=== PATIENT | female | born 1945 | race Caucasian/White ===

== ENCOUNTER 2020-06-25 11:48 | Day surgery (SDC) | payer MEDICARE, OTHER ==
[~2020-06-25] VITALS: Ht 162.6 cm; Wt 68.0 kg
--- NOTE | ~2020-06-25 | OR ---
[facility] [address] [place], [place] [address] Draft DATE OF OPERATION: 06/25/2020 SURGEON: Anshul Velarde MD PREOPERATIVE DIAGNOSIS: Recent profound rectal bleeding (with cessation). POSTOPERATIVE DIAGNOSES: 1. Large internal hemorrhoids. 2. Scattered diverticula. 3. Small polyp of the cecum. PROCEDURE: Total colonoscopy to cecum with cold morcellation polypectomy x1. ANESTHESIA: Intravenous sedation; fentanyl 100 mcg and Versed 3 mg. INDICATION: This 74-year-old white woman is a patient Dr. Pineda and had rather progressive profound rectal bleeding that spontaneously stopped on May 16, 2020. Plans were made for colonoscopy. Her last colonoscopy was 9 years ago, which was normal. She has no family history of colon cancer. She is admitted at this time to undergo colonoscopy to better characterize her bleeding problem, particularly to assess for polyps or cancer. She understands the risk of bleeding, infection, and perforation and wished to proceed. FINDINGS: The prep was excellent. Complete colonoscopy was undertaken to the cecum without question. She had a small adenomatous appearing polyp in the cecum, which was excised with cold morcellation technique. There were few scattered diverticula throughout the colon as well. Retroflexed view confirmed rather significant hemorrhoids and most likely this is the source of her recent bleeding. She is not currently bleeding DESCRIPTION OF PROCEDURE: The patient was brought to the endoscopy suite and placed in the lateral decubitus position, given intravenous sedation to the point of slurred speech and nystagmus. Digital rectal examination palpated somewhat redundant anal rectal hemorrhoidal disease. An Olympus video colonoscope was passed in the rectum and manipulated throughout the colon noting a few scattered small diverticula of the sigmoid and left colon. The scope PATIENT NAME: OSMANI LIU OPERATIVE REPORT DATE OF : 49 REPORT #: [id number] PHYSICIAN: ANSHUL VELARDE MD PCP: RAYMOND PINEDA MD REPORT IS CONFIDENTIAL AND NOT TO BE RELEASED WITHOUT AUTHORIZATION [facility] [address], [place] [address] Draft was ultimately advanced to the cecum with abdominal wall stabilization as an assist. The cecum was fully intubated. The ileocecal valve and appendiceal orifice were normal. The scope was withdrawn and immediately noted was a small adenomatous appearing polyp about 5-8 mm in size. This was excised with cold morcellation technique. The scope was further withdrawn. Examination throughout showed no sign of abnormality other than a few scattered diverticula. Retroflexed view of the rectum confirmed internal hemorrhoidal changes which were significant and most likely the source of her recent rectal bleeding. There was no sign of active bleeding now. No sign of thrombosis. No fissure. The scope was straightened, withdrawn and removed. The patient was taken to recovery room in good condition. CONCLUDING DIAGNOSES: 1. Internal hemorrhoids, likely cause of bleeding. 2. Small polyp of cecum. PLAN: Recommend a fiber supplement such as Metamucil or Citrucel on a daily basis. If she should have recurrent bleeding, would recommend prompt internal hemorrhoidal banding in the office setting. As regard to the polyp, would recommend repeat colonoscopy in 5 years. She is to return to the ongoing care of Dr. Pineda. If bleeding recurs, she will let us know. Anshul Velarde MD JM/MODL /[id number] cc: Raymond Pineda MD Copies: RAYMOND PINEDA MD ~ PATIENT NAME: OSMANI LIU OPERATIVE REPORT DATE OF : 49 REPORT #: [id number] PHYSICIAN: ANSHUL VELARDE MD PCP: RAYMOND PINEDA MD REPORT IS CONFIDENTIAL AND NOT TO BE RELEASED WITHOUT AUTHORIZATION
[~2020-06-25 11:48] MED LIST: ASPIRIN EC81 MG PO; CRESTOR10 MG PO; LISINOPRIL5 MG PO; NORCO 5-325 TA1 EACH PO; SYNTHROID88 MCG PO; VITAMIN D5000 UNIT PO
--- NOTE | 2020-06-25 14:04 | NUR ---
06/25/20 1404 Kim Martin 1330 PT ARRIVED IN PACU SLEEPY WITH NO C/O'S. ABD SOFT. 1345 DR AT BEDSIDE TALKING WITH PT. ALL QUESTIONS ANSWERED. 1400 SITTING AT BEDSIDE SIPPING ON WATER. DC INSTRUCTIONS GIVEN WITH HEMORRHOID PAMPHLET.
--- NOTE | 2020-06-26 13:40 | PATH ---
[facility] [address] [place], [place] [address] Signed SPECIMEN(S): A CECAL POLYP SPECIMEN SOURCE: A. CECAL POLYP CLINICAL HISTORY: Colonoscopy with poss biopsies. Pre: Rectal bleeding. Post: Cecal polyp, diverticulosis, internal hemorrhoids. MICROSCOPIC DESCRIPTION: Histologic sections of all submitted blocks are examined by light microscopy. These findings, together with the gross examination, support the pathologic diagnosis. FINAL PATHOLOGIC DIAGNOSIS: Colon, cecum, polyp, polypectomy: - Tubular adenoma. - Negative for high-grade dysplasia or malignancy. NAL:cml:C2NR GROSS DESCRIPTION: The specimen, labeled "KF, cecum polyp," is received in formalin and consists of one cheng soft tissue fragment that measures 0.2 cm in greatest dimension. The specimen is entirely submitted in cassette (A1). JS (under the direct supervision of a pathologist) The Gross Description was prepared using a voice recognition system. The report was reviewed for accuracy; however, sound-alike word errors, addition and/or deletions may occur. If there is any question about this report, please contact Client Services. PERFORMING LABORATORY: The technical component was performed by [facility], [address] [place] [id number] (Distribution Manager: Rylie Allison MD; CLIA# [id number]). [facility], [address] [address] (CLIA# [id number]). Diagnostician: Marti Thomas MD Pathologist Electronically Signed 06/26/2020 PATIENT NAME: OSMANI LIU PATHOLOGY DATE OF : 49 REPORT #: [id number] PHYSICIAN: [facility] PCP: RAYMOND FELIX MD REPORT IS CONFIDENTIAL AND NOT TO BE RELEASED WITHOUT AUTHORIZATION [address] [place] [address] Signed Copies: ~ PATIENT NAME: OSMANI LIU PATHOLOGY DATE OF : 49 REPORT #: [id number] PHYSICIAN: [facility] PCP: RAYMOND FELIX MD REPORT IS CONFIDENTIAL AND NOT TO BE RELEASED WITHOUT AUTHORIZATION
== END 2020-06-25 14:10 | disposition home or self-care (01) ==
LOC: DS 11:48 → OPS 11:48 → DS 13:00 → OPS 14:10
PROVIDERS: ATTEND Surgery
PROC: 0DBH8ZX Excision of Cecum, Via Natural or Artificial Opening Endoscopic, Diagnostic (ICD-10-PCS; principal; 2020-06-25 13:00)
DX: K64.8 Other hemorrhoids (principal); D12.0 Benign neoplasm of cecum; K57.30 Diverticulosis of large intestine without perforation or abscess without bleeding; I10 Essential (primary) hypertension; E03.9 Hypothyroidism, unspecified; Z95.5 Presence of coronary angioplasty implant and graft
CPT/HCPCS: 99153; G0500; J2250; J3010